=== PATIENT | female | born 1975 | race Hispanic/Latino ===

== ENCOUNTER 2020-08-05 15:15 | Emergency (ER) | payer SELFPAY ==
[~2020-08-05] VITALS: Ht 157.5 cm; Wt 86.2 kg
[2020-08-05 15:46] VITALS: BP 158/88
[2020-08-05] MEDS ORDERED: KETOROLAC 30MG VIAL (30MG/ML) IM ONE (16:00)
[2020-08-05] MEDS ORDERED: CEFTRIAXONE SODIUM 1 GM ONE (16:03)
[2020-08-05] MEDS ORDERED: LIDOCAINE HCL-MPF 1% 2ML VIAL ONE (16:03)
[2020-08-05] MEDS ORDERED: KETOROLAC 30MG VIAL (30MG/ML) ONE (16:03)
[2020-08-05] MEDS ORDERED: CEFTRIAXONE SODIUM 1 GM IM ONE (16:11)
[2020-08-05] MEDS ORDERED: SULF1TAB42 PO (16:34)
[2020-08-05] MEDS ORDERED: CEPH500B PO (16:34)
[2020-08-05] MEDS ORDERED: IBUP-2077 PO (16:34)
[2020-08-05] MEDS ORDERED: ACET1TAB25 PO (16:34)
== END 2020-08-05 16:44 | disposition home or self-care (01) ==
LOC: EDH 15:15
DX: L03.311 Cellulitis of abdominal wall (principal); Z79.1 Long term (current) use of non-steroidal anti-inflammatories (NSAID)
CPT/HCPCS: 96372 ×2; 99284; J0696; J1885; J3490

== ENCOUNTER 2021-04-08 12:13 | Inpatient (IN) | payer BC, OTHER ==
[~2021-04-08 12:13] MED LIST: ACET1TAB25 PO; CEPH500B PO; IBUP-2077 PO; SULF1TAB42 PO
[2021-04-08] MEDS ORDERED: ACETAMINOPHEN WITH CODEINE 1 TAB TAB PO PRN (12:30)
[2021-04-08] MEDS ORDERED: IBUPROFEN 600 MG TABLET PO PRN (12:30)
[2021-04-08] MEDS ORDERED: ACETAMINOPHEN 325 MG TAB PO PRN (12:30)
[2021-04-08 12:47] LABS: BASOPHILS % (AUTO) 0.5 % (0.0-5.0); EOSINOPHILS % (AUTO) 1.1 % (0.0-8.0); HEMATOCRIT 40.2 % (36-48); LYMPHOCYTES % (AUTO) 10.5 % (21.0-51.0); MEAN CORPUSCULAR HEMOGLOBIN 28.5 pg (27.0-33.0); MEAN CORPUSCULAR HGB CONC 32.6 g/dL (32.0-36.0); MEAN CORPUSCULAR VOLUME 87.6 fL (79-99); MONOCYTES % (AUTO) 5.5 % (3.0-13.0); PLATELET COUNT (AUTO) 469 K/uL (130-400); RED BLOOD CELL COUNT(AUTO) 4.59 MIL/uL (4.00-5.50); RED CELL DISTRIBUTION WIDTH 13.1 % (11.0-15.5); WHITE BLOOD COUNT (AUTO) 25.6 K/uL (4.8-10.8)
[2021-04-08 12:59] LABS: CREATININE 0.7 mg/dL (0.5-1.5); POTASSIUM 4.1 mmol/L (3.5-5.1)
[2021-04-08 13:04] LABS: ALBUMIN 3.3 g/dL (3.5-5.0); BILIRUBIN,TOTAL 0.5 mg/dL (0.2-1.0); TOTAL PROTEIN, SERUM 8.8 g/dL (6.0-8.3)
[2021-04-08] MEDS: LACTATED RINGERS 1000ML 1,000 ML IV SCH ×2 (13:14→22:11)
[2021-04-08] MEDS: ZOSYN 3.375GM +NS 50ML IV SCH ×2 (13:14→20:41)
[2021-04-08] MEDS ORDERED: IOHEXOL 350 MG/ML 100ML INFUS..BTL IV ONE (13:19)
[2021-04-08] MEDS: MORPHINE 4 MG SYG IM PRN ×2 (13:52→19:58)
[2021-04-08] MEDS: CLINDAMYCIN IVPB 900MG/50ML 50 ML IV SCH ×2 (13:52→20:00)
[2021-04-08 15:00] VITALS: BP 124/79
[2021-04-08 16:00] VITALS: BP 126/77
[2021-04-08] MEDS: ACETAMINOPHEN WITH CODEINE 1 TAB TAB PO PRN (16:01)
[2021-04-08] MEDS ORDERED: DOXY100C5 PO (18:39)
[2021-04-08 19:31] VITALS: BP 127/80
[2021-04-08 23:37] VITALS: BP 119/74
[2021-04-09] MEDS ORDERED: MORPHINE 4 MG SYG IVP PRN (00:30)
[2021-04-09] MEDS: ACETAMINOPHEN WITH CODEINE 1 TAB TAB PO PRN ×2 (02:18→20:29)
[2021-04-09] MEDS: CLINDAMYCIN IVPB 900MG/50ML 50 ML IV SCH ×3 (03:27→20:17)
[2021-04-09 03:38] VITALS: BP 116/74
[2021-04-09] MEDS: ZOSYN 3.375GM +NS 50ML IV SCH ×3 (05:00→21:26)
[2021-04-09] MEDS: LACTATED RINGERS 1000ML 1,000 ML IV SCH ×2 (06:30→18:46)
[2021-04-09] MEDS ORDERED: MORPHINE 4 MG SYG IV PRN (06:57)
[2021-04-09 07:45] VITALS: BP 128/83
[2021-04-09] MEDS ORDERED: PROMETHAZINE HCL 25 MG/ML 1ML AMPULE IM SCH (08:30)
[2021-04-09] MEDS ORDERED: MEPERIDINE-PF 50 MG/ML SYG IM SCH (08:30)
[2021-04-09 11:05] VITALS: BP 122/88
[2021-04-09 16:25] VITALS: BP 115/78
[2021-04-09 19:30] VITALS: BP 115/61
[2021-04-09 23:27] VITALS: BP 99/63
[2021-04-10] VITALS (7 sets, daily range): BP systolic 101–134; BP diastolic 62–78
[2021-04-10] MEDS: LACTATED RINGERS 1000ML 1,000 ML IV SCH ×2 (04:09→19:17)
[2021-04-10] MEDS: CLINDAMYCIN IVPB 900MG/50ML 50 ML IV SCH ×3 (04:09→20:30)
[2021-04-10] MEDS: ZOSYN 3.375GM +NS 50ML IV SCH ×3 (05:12→20:50)
[2021-04-10] MEDS: PROMETHAZINE HCL 25 MG/ML 1ML AMPULE IM PRN ×2 (05:25→10:51)
[2021-04-10] MEDS: MEPERIDINE-PF 50 MG/ML SYG IM PRN ×2 (05:26→10:53)
[2021-04-10 05:33] LABS: BASOPHILS % (AUTO) 0.7 % (0.0-5.0); EOSINOPHILS % (AUTO) 3.8 % (0.0-8.0); HEMATOCRIT 33.6 % (36-48); MEAN CORPUSCULAR HEMOGLOBIN 28.3 pg (27.0-33.0); MEAN CORPUSCULAR HGB CONC 32.1 g/dL (32.0-36.0); MONOCYTES % (AUTO) 5.6 % (3.0-13.0); NEUTROPHILS % (AUTO) 70.3 % (40.0-77.0); PLATELET COUNT (AUTO) 379 K/uL (130-400); RED BLOOD CELL COUNT(AUTO) 3.82 MIL/uL (4.00-5.50); RED CELL DISTRIBUTION WIDTH 12.9 % (11.0-15.5); WHITE BLOOD COUNT (AUTO) 11.5 K/uL (4.8-10.8)
[2021-04-10] MEDS: ACETAMINOPHEN WITH CODEINE 1 TAB TAB PO PRN (23:39)
[2021-04-11 03:10] VITALS: BP 109/75
[2021-04-11] MEDS: CLINDAMYCIN IVPB 900MG/50ML 50 ML IV SCH ×2 (04:13→12:17)
[2021-04-11] MEDS: ZOSYN 3.375GM +NS 50ML IV SCH (05:15)
[2021-04-11 07:29] VITALS: BP 107/73
[2021-04-11] MEDS: LACTATED RINGERS 1000ML 1,000 ML IV SCH (07:41)
[2021-04-11] MEDS: PROMETHAZINE HCL 25 MG/ML 1ML AMPULE IM PRN (08:43)
[2021-04-11] MEDS: MEPERIDINE-PF 50 MG/ML SYG IM PRN (08:43)
[2021-04-11 11:40] VITALS: BP 112/69
== END 2021-04-11 13:35 | disposition home or self-care (01) | DRG 603 ==
LOC: EDH 12:13 → WSH 12:14
PROVIDERS: ADMIT Obstetrics & Gynecology; ATTEND Obstetrics & Gynecology
DX: L02.214 Cutaneous abscess of groin (principal)
CPT/HCPCS: 36415; 74178; 80053; 85025; 87070; 87076; 87077; 87186; G0378; J2175; J2270; J2543; J2550; J3490; J7120; Q9967

== ENCOUNTER 2023-04-09 18:24 | Emergency (ER) | payer BC, OTHER ==
[~2023-04-09] VITALS: Ht 157.5 cm; Wt 86.2 kg
[2023-04-09] MEDS ORDERED: IBUP-2077 PO (23:48)
[2023-04-09] MEDS ORDERED: CYCL5TAB PO (23:48)
[2023-04-10] MEDS: DIAZEPAM 2 MG TAB PO ONE (00:40)
[2023-04-10] MEDS: HYDROCODONE/ACETAMINOPHEN 5/325 MG TAB PO ONE (00:40)
[2023-04-10 01:10] VITALS: BP 136/88; PULSE 76; RESP 18; O2SAT 99
== END 2023-04-10 01:12 | disposition home or self-care (01) ==
LOC: EDH 18:24
DX: S13.4XXA Sprain of ligaments of cervical spine, initial encounter (principal); E66.9 Obesity, unspecified; Z90.79 Acquired absence of other genital organ(s); Z68.34 Body mass index [BMI] 34.0-34.9, adult; X58.XXXA Exposure to other specified factors, initial encounter; Y93.89 Activity, other specified; Y92.89 Other specified places as the place of occurrence of the external cause; Y99.8 Other external cause status
CPT/HCPCS: 70450; 72125